=== PATIENT | female | born 1995 | race Caucasian/White ===

== ENCOUNTER 2018-07-27 00:30 | Emergency (ER) | payer BC, MEDICAID, SELFPAY ==
[2018-07-27 00:35] VITALS: BP 112/73; PULSE 78; RESP 16; TEMP 36.7; O2SAT 99
--- NOTE | 2018-07-27 00:41 | ED.GENADUL_ITS ---
Discharge Plan Disposition Patient Disposition: HOME Condition: Improving Discharge Details Chief Complaint: Abd Prob Clinical Impression: Abdominal pain Primary Care Provider: Nemesio Valdez ED Provider: Alice Napier Home Meds and New Rx's Prescriptions: No Action levonorgestrel [Mirena] 1 EACH intrauterine device 1 ea Intrauterine ONCE Qty: 1 RF: 0 clobetasol-emollient 15 GM cream 15 gm Topical BID 14 Days Qty: 14 RF: 0 Discharge Instructions Instructions: Abdominal Pain (ED) Additional Instructions: You were found to have free fluid in your pelvis on the CAT scan of your abdomen. This could be consistent possibly with a ruptured ovarian cyst. This can be further evaluated with a pelvic ultrasound. As you do not want transfer to [facility] at this time for this test, please return early tomorrow morning for reevaluation and possibly ultrasound if your pain persists. We do not have ultrasound readily available on the weekends but attempts can be made to contact them for availability. Return immediately to the emergency department if you have any worsening or new concerning symptoms. Alternate Tylenol and Motrin as needed and directed for pain. If your pain improves and you feel better, follow-up with your primary care doctor in 1 week for reevaluation as needed. Discharge Data Discharge Physician: Alice Napier Medical Decision Making [facility] Narrative Medical decision making narrative: 23-year-old female who presents with intermittent dull right lower quadrant pain for 2 days, worse tonight now constant and sharp and associated with nausea. Patient tearful during exam. Vitals within normal limits. She has right lower quadrant tenderness to palpation but no rebound, rigidity, guarding. She appears nontoxic. Differential diagnosis includes appendicitis, ovarian cyst. She does admit to her normal physiologic discharge but states is no different than usual. She has no fever, abnormal vaginal discharge, this makes tubo-ovarian abscess unlikely. We will place an IV, bolus IV fluids, labs, urinalysis, urine test, CT abdomen and pelvis to rule out acute process such as appendicitis or ovarian cyst. We do not have ultrasound available at this time. She is declining pelvic exam at this time. 0200 --patient feels better. She states her pain is improved to 3/10. Labs reviewed and negative. White blood cell count normal. CT pending. 0230 --CT notes small amount of fluid in the pelvis. The appendix is vaguely seen but grossly unremarkable. Results were discussed with patient and she states she feels better and is requesting to go home. I discussed with patient that although the appendix is vaguely seen, she has normal white blood cell count, no fever, making appendicitis less likely however if anything changes she should return immediately to the emergency department. We also discussed the possibility of fluid in the pelvis may be indicating a ruptured ovarian cyst. Also discussed the possibility of ovarian torsion and that this would require emergent transfer to [facility] for an ultrasound which patient is declining at this time. Patient states she feels better and would rather go home. I discussed with patient that ultrasound is not available on the weekends , but if her pain is still present tomorrow morning, she should return to the emergency department as they can attempt to contact ultrasound for availability or consider transfer if necessary at that time. Patient otherwise instructed to follow-up with her primary care doctor. HPI - General Adult General Mode of arrival: ambulatory . Date/Time Provider Initiated Documentation: 07/27/18 00:36 . Limitations to Documentation: no limitations . Information obtained by: patient . HPI Narrative: Patient is a 23-year-old female who presents with intermittent dull right lower quadrant pain for 2 days, now more constant and sharp for the past 2 hours states the pain is currently 7/10 but 10/10 with palpation. States the pain radiates around to her back. She also admits to nausea for the past 2 hours but denies any vomiting, diarrhea, urinary symptoms. She does admit to her normal physiologic discharge but denies any change in this. She is sexually active with her but denies any known exposure to STDs or external lesions. States her last bowel movement was at 6 PM tonight and was normal without diarrhea or blood. She denies any vaginal bleeding. She is on Mirena and denies any chance of . She is unsure of her last menstrual period. Patient states she was on an antibiotic for urinary tract infection per her PCP office which she finished 1 week ago for urinary symptoms of dysuria and frequency but she states these have now resolved. Past medical history: Negative Surgical history: Bilateral myringotomy tubes OB history: , normal spontaneous vaginal delivery, last occurring in February 2017 Social history: Denies tobacco, alcohol or drug use Medications: Mirena Allergies: Penicillin Primary CARE DrEliu: [facility] Related Data Allergies Allergy/AdvReac Type Severity Reaction Status Date / Time Penicillins Allergy Mild Hives Unverified 07/27/18 00:37 animal dander Allergy Mild Itching Uncoded 07/27/18 00:37 General Stated Complaint: Abd Prob DURGA: 3 Review of Systems Review of Systems All systems reviewed & are unremarkable except as noted in HPI and below Constitutional Denies chills, Denies excessive sweating, Denies fatigue, Denies fever(s), Denies weakness and Denies weight loss Eyes Patient Reports system reviewed and no additional complaints, except as docu and Denies blurry vision ENT Denies vertigo, Denies dizziness, Denies otalgia, Denies nasal congestion, Denies sore throat and Denies throat swelling Cardiovascular Denies chest pain, Denies syncope, Denies rapid heart rate and Denies dyspnea Respiratory Denies dyspnea Gastrointestinal Reports abdominal pain, Denies change in bowel habits, Denies constipation, Denies diarrhea, Reports nausea and Denies vomiting Genitourinary Denies hematuria, Denies dysuria and Denies flank pain Musculoskeletal Denies joint swelling Integumentary/Breasts Denies lesions and Denies rash Neurologic Denies behavioral changes, Denies confusion, Denies vertigo, Denies dizziness, Denies syncope and Denies weakness Psychiatric Denies behavioral changes, Denies confusion and Denies depression Endocrine Denies excessive sweating and Denies fatigue Hematologic/Lymphatic Denies easy bruising and Denies lymphadenopathy Allergic/Immunologic Denies throat swelling PFSH Social History Smoking/Tobacco Use Status: Never Exam Const General: cooperative, healthy appearing and in distress moderate (Crying during exam with palpation) Orientation: alert and awake [facility] Head: normal to inspection Ears: hearing grossly normal bilaterally, external ears normal and TM's normal bilaterally General nose exam: external nose normal Face and sinus: normal facial exam Mouth: oral mucosae normal Eyes General: appearance normal, both eyes and all related structures Eyelids: eyelids normal EOM: EOM intact bilaterally Neck Neck: normal visual inspection Lymphatic: no lymphadenopathy noted Chest Chest: normal inspection of the chest Resp Effort & Inspection: normal respiratory effort and able to speak in complete sentences Auscultation: clear to auscultation bilaterally Cardio Rate: regular rate Rhythm: regular rhythm GI Inspection: normal to inspection Palpation: soft, not firm, no guarding, no hepatosplenomegaly, no masses, not rigid and tender (Moderate tenderness to palpation in right lower quadrant. No rebound tenderness. Negative heel jar sign. Negative psoas sign) Auscultation: hypoactive bowel sounds Back/Spine/Pelvis Back: no CVA tenderness Skin General skin exam: no rashes or lesions noted Neuro General: alert and awake Cognition: normal cognition Speech: speech normal Gait: normal gait Motor: muscle tone normal throughout Sensory Exam: no sensory deficits noted Extrem General: normal to inspection, full ROM and normal capillary refill Psych Appearance: grossly normal Mental Status: mental status grossly normal Speech and Movement: speech and movement normal Affect: normal affect Thought Process: normal Course Vital Signs Temperature 98.1 F 07/27/18 00:35 Pulse 78 07/27/18 00:35 Respiratory Rate 16 07/27/18 00:35 Blood Pressure 112/73 07/27/18 00:35 Pulse Oximetry 99 07/27/18 00:35 Temperature 98.1 F 07/27/18 00:35 Pulse 78 07/27/18 00:35 Respiratory Rate 16 07/27/18 00:35 Blood Pressure 112/73 07/27/18 00:35 Pulse Oximetry 99 07/27/18 00:35
[2018-07-27 00:51] LABS: Bilirubin Negative (Negative); Blood Negative (Negative); Clarity Clear; Glucose Negative (Negative); Ketones Negative (Negative); Leukocyte Esterase Trace (Negative); Nitrite Negative (Negative); Urobilinogen 0.2 EU/dL (Up TO 0.2); pH 6.5 (5-8)
[2018-07-27 01:01] LABS: Bacteria Moderate HPF (Negative); C & S Indicated? No/Sq. Contamination; Casts Negative LPF (Negative); Crystals Negative HPF (Negative); Epithelial Cells Many HPF (Negative); Mucus Negative (Negative); RBC 0-2 (0-2); WBC 20-50 HPF (0-5)
[2018-07-27] MEDS: Normal Saline 1,000 ML 1000 ML IV (01:05)
[2018-07-27] MEDS: Ondansetron 4 MG/2 ML VIAL IVP (01:06)
[2018-07-27] MEDS: Ketorolac 30 MG/ML VIAL IVP (01:06)
[2018-07-27 01:16] LABS: Abs Immature Grans 0.01 k/cumm (0.0-0.09); Absolute Basophil Count 0.04 k/cumm (0.0-0.2); Absolute Eosinophil Count 0.22 k/cumm (0.0-0.7); Absolute Monocyte Count 0.69 k/cumm (0.11-0.7); Absolute Neutrophil Count 4.11 k/cumm (1.2-6.7); Basophils % 0.5; Eosinophils % 2.7; HCT 39.6 % (36.0-46.0); HGB 13.4 g/dL (12.0-15.5); Immature Grans % 0.1; Lymphocytes % 37.2; Mean Corp. HGB Concentration 33.8 g/dL (32.0-36.0); Mean Corpuscular Hemoglobin 29.6 pg (27.0-33.0); Mean Corpuscular Volume 87.6 fL (80-95); Mean Platelet Volume 11.1 fL (8.0-11.0); Monocytes % 8.6; Neutrophils % 50.9; Platelet Count 198 x1000/uL (130-400); RBC 4.52 m/cumm (4.00-5.20); RBC Distribution Width 13.2 % (11.7-14.6); White Blood Cell Count 8.07 k/cumm (4.4-10.8)
--- NOTE | 2018-07-27 01:40 | DI.CT_ITS ---
SYMPTOM/DIAGNOSIS: RLQ ABD PAIN, R/O ACUTE APPENDICITIS CT ABDOMEN AND PELVIS: Images were performed from the lung bases through the ischial tuberosities after IV contrast. The lung bases are clear. The liver, gallbladder, spleen, pancreas, adrenals and kidneys are unremarkable. No bowel dilatation or inflammatory changes are seen. The appendix is not well seen, the appendix appears normal. There is a moderate quantity of fluid in the lower pelvis An IUD was seen within the uterus which appears somewhat enlarged. The ovaries are unremarkable. The bladder appears intact. No bony abnormalities are seen. No adenopathy is seen. IMPRESSION: No evidence of appendicitis or ovarian cysts. There is fluid in the lower pelvis.
[2018-07-27 01:43] LABS: ALT 18 U/L (12-78); AST 17 U/L (15-37); Albumin 3.9 g/dL (3.4-5.0); Alkaline Phosphatase 117 U/L (46-116); Anion Gap 4.7 mmol/L (3-11); BUN 17 mg/dL (7-18); Bilirubin, Total 0.3 mg/dL (0.2-1.0); CO2 29.3 mmol/L (21.0-32.0); CREATININE 0.75 mg/dL (0.55-1.02); Calcium 8.3 mg/dL (8.5-10.1); Chloride 103 mmol/L (98-107); Glucose 90 mg/dL (70-100); Potassium 3.5 mmol/L (3.5-5.1); Sodium 137 mmol/L (136-145); Total Protein 7.8 g/dL (6.4-8.2)
[2018-07-27] MEDS: Omnipaque 350 MG/ML 100 ML BTL IJ (01:46)
--- NOTE | 2018-07-27 02:20 | DI.VRAD_ITS ---
EXAM: CT Abdomen and Pelvis With Intravenous Contrast CLINICAL HISTORY: 23 years old, female; Pain; Abdominal pain; Localized; Right lower quadrant (rlq); Patient HX: Rlq pain TECHNIQUE: Axial computed tomography images of the abdomen and pelvis with intravenous contrast. All CT scans at this facility use at least one of these dose optimization techniques: automated exposure control; mA and/or kV adjustment per patient size (includes targeted exams where dose is matched to clinical indication); or iterative reconstruction. Coronal and sagittal reformatted images were created and reviewed. CONTRAST: 86 mL of Omnipaque 350 administered intravenously. COMPARISON: US - PELVIS TRANSVAG 03/06/2016 5:33 PM FINDINGS: Lung bases: Unremarkable. No mass. No consolidation. ABDOMEN: Liver: Unremarkable. No mass. Gallbladder and bile ducts: Unremarkable. No calcified stones. No ductal dilation. Pancreas: Unremarkable. No mass. No ductal dilation. Spleen: Unremarkable. No splenomegaly. Adrenals: Unremarkable. No mass. Kidneys and ureters: Unremarkable. No solid mass. No hydronephrosis. Stomach and bowel: Unremarkable. No obstruction. No mucosal thickening. PELVIS: Appendix: The appendix is vaguely seen and grossly unremarkable. Overall evaluation is limited without oral contrast. Bladder: Unremarkable. No mass. Reproductive: IUD in place. ABDOMEN and PELVIS: Intraperitoneal space: Small amount of fluid in the pelvis. No free air. Bones/joints: No acute fracture. No dislocation. Soft tissues: Unremarkable. Vasculature: Unremarkable. No abdominal aortic aneurysm. Lymph nodes: Unremarkable. No enlarged lymph nodes. IMPRESSION: IUD in place. Small amount of fluid in the pelvis. If further evaluation is desired, consider correlation with pelvic ultrasound. The appendix is vaguely seen and grossly unremarkable. Dictated and Authenticated by: Dexter Reilly MD. Ordering:KOBY TRAN MD
[2018-07-27 02:56] VITALS: BP 97/52; PULSE 73; RESP 16; TEMP 36.7; O2SAT 98
== END 2018-07-27 03:03 | disposition home or self-care (01) ==
PROVIDERS: Emergency Provider Physician Assistant; PCP Internal Medicine
DX: R10.31 Right lower quadrant pain (principal); R11.0 Nausea
CPT/HCPCS: 36415; 80053; 81025; 96361; 96374; 96375; 99285; 74177; 81003; 81015; 85025; J1885; J2405; J3490

== ENCOUNTER 2018-10-04 14:24 | Emergency (ER) | payer BC, MEDICAID, SELFPAY ==
[2018-10-04 14:35] VITALS: BP 105/56; PULSE 105; RESP 16; TEMP 37; O2SAT 99
[2018-10-04 14:36] VITALS: BP 105/65; PULSE 105; RESP 14; TEMP 37; O2SAT 99
[2018-10-04 14:44] VITALS: TEMP 37.4
--- NOTE | 2018-10-04 14:51 | DI.RAD_ITS ---
SYMPTOMS/DIAGNOSIS: COUGH PA AND LATERAL CHEST: The heart size and pulmonary vasculature are within normal limits. There is a small infiltrate in the left lingula. The lungs are otherwise clear. No effusions or pneumothoraces are identified. The bones appear intact. IMPRESSION: Left lingular pneumonia.
[2018-10-04] MEDS: Ibuprofen 600 MG TAB PO (14:55)
[2018-10-04] MEDS: Acetaminophen 500 MG TAB 1000 MG PO (14:55)
--- NOTE | 2018-10-04 15:12 | ED.GENADUL_ITS ---
Discharge Plan Disposition Patient Disposition: HOME Condition: Fair Discharge Details Chief Complaint: RespSymp Clinical Impression: Pneumonia Primary Care Provider: Nemesio Valdez ED Provider: Vaishali Mcdonald Home Meds and New Rx's Prescriptions: New azithromycin 250 mg tablet 250 mg PO DAILY 4 Days Qty: 4 RF: 0 benzonatate [Tessalon Perles] 100 mg capsule 100 mg PO TID PRN (Reason: cough) Qty: 10 RF: 0 Continue levonorgestrel [Mirena] 1 EACH intrauterine device 1 ea Intrauterine ONCE Qty: 1 RF: 0 clobetasol-emollient 15 GM cream 15 gm Topical BID 14 Days Qty: 14 RF: 0 Discharge Instructions Instructions: Pneumonia (ED) Additional Instructions: Encourage hydration. Tylenol and/or ibuprofen as needed for discomfort. Please take azithromycin as prescribed, even if symptoms improve the entire course. Tessalon Perles prescribed to help with cough. If you develop difficulty breathing, shortness of breath, inability to stay hydrated or other new/worsening symptoms please seek care urgently once again. Please follow-up with primary care in 1 week for reevaluation Referrals: Nemesio Valdez MD [Primary Care Provider] - Medical Decision Making Patient is 23-year-old female presents today with chief complaint of cough times 2 weeks. She will also endorses sore throat and nasal congestion. Reports she is been around multiple ill people recently. Patient works in a school. States that a few days ago her coughing increased and she did experience some gagging and dry heaving associated with the cough. Denies any GI upset separate from the cough. States she was afebrile until today and noted temperature near 102 while at school. Did take Tylenol this morning. Is tried multiple [id number] cold remedies without success from symptomatic management. Is able to hydrate well. On exam, crackles are noted in the left lower lobe, and concern for pneumonia. Will obtain chest x-ray. Patient is endorsing a mild headache which she reports is waxed and waned since the onset of her symptoms. States the pain is mild at this time. No sudden onset of headache. Oxygen is 99% on room air. Patient is tachycardic at 105. Chest x-ray reviewed by myself and I am concerned for consolidation in the area where the crackles on exam. Patient diagnosed with pneumonia. She reports that headache is improving after oral Tylenol and ibuprofen. Heart rate is now in the 80s. Patient appears more comfortable. We will begin her on azithromycin, she will be given the first dose while here. Also prescribe Tessalon Perles to help with symptomatic management. I encouraged hydration. Advised Tylenol and/or ibuprofen as needed for discomfort. Advise follow-up with primary care in 1 week for reevaluation. She is given strict return precautions. Encouraged hand hygiene. All of her questions and concerns were addressed and she is in agreement with this plan. HPI General Mode of arrival: ambulatory . Date/Time Provider Initiated Documentation: 10/04/18 14:41 . Limitations to Documentation: no limitations . Information obtained by: patient . History of Present Illness 23 year old F presents to the emergency department with the chief complaint of cough, described as moderate, Quality is described as aching, and is localized to the back (reports that with cough she has some discomfort in posterior chest wall). Patient reports no radiation. Patient started experiencing this week(s) (2) and it has been constant. No relieving factors improve symptom(s), No exacerbating factors reported . Patient notes cough, fever/chills, headaches, nausea/vomiting (states that she can gag associated with cough, denies nausea without cough) and shortness of breath; denies chest pain, diaphoresis and rash. Patient did receive the following treatments prior to arrival, other (multiple OTC cold medications) Related Data Home Medications Medication Instructions Recorded Confirmed levonorgestrel [Mirena] 1 ea INTRAUTERINE ONCE #1 insert 05/15/17 10/04/18 clobetasol-emollient 15 gm TOPICAL BID 14 Days #14 tube 05/08/18 10/04/18 azithromycin 250 mg PO DAILY 4 Days #4 tab 10/04/18 benzonatate [Tessalon Perles] 100 mg PO TID PRN #10 cap 10/04/18 Previous Rx's Medication Instructions Recorded clobetasol-emollient 15 gm TOPICAL BID 14 Days #14 tube 05/08/18 azithromycin 250 mg PO DAILY 4 Days #4 tab 10/04/18 benzonatate [Tessalon Perles] 100 mg PO TID PRN #10 cap 10/04/18 Allergies Allergy/AdvReac Type Severity Reaction Status Date / Time Penicillins Allergy Mild Hives Verified 10/04/18 14:39 animal dander Allergy Mild Itching Uncoded 10/04/18 14:39 General Stated Complaint: RespSymp DURGA: 3 Review of Systems Constitutional Reports as per HPI, Denies body ache(s), Reports chills, Reports fatigue, Reports fever(s) and Reports headache(s) ENT Reports as per HPI, Denies dizziness, Denies ear discharge, Denies otalgia, Reports headache(s), Reports nasal congestion, Reports nasal discharge, Denies sinus pain, Denies sinus pressure and Reports sore throat Cardiovascular Reports as per HPI Respiratory Reports as per HPI, Reports chest congestion and Reports cough Gastrointestinal Reports as per HPI, Denies abdominal pain and Denies change in stool character Genitourinary Denies system reviewed and no additional complaints, except as docu (denies change in urinary habits) Musculoskeletal Reports as per HPI Integumentary/Breasts Reports as per HPI and Denies rash Neurologic Denies dizziness and Reports headache(s) Endocrine Reports fatigue Exam Const General: cooperative, comfortable, no acute distress, well developed, well groomed and ill appearing (appears fatigued, breathing comfortably, coughing) acutely Nutritional Appearance: average body habitus and well nourished Orientation: alert and awake [facility] Head: normal to inspection, normocephalic and atraumatic Ears: hearing grossly normal bilaterally, external ears normal and TM's normal bilaterally General nose exam: external nose normal and nares normal Face and sinus: normal facial exam and sinuses nontender Mouth: oral mucosae normal, lip normal, tongue normal, oropharynx normal, moist mucous membranes, no muffled voice and no trismus Teeth and gingiva: dentition normal Throat: posterior oropharynx normal, tonsils normal and uvula midline Eyes General: appearance normal, both eyes and all related structures Neck Neck: normal visual inspection, full ROM, no lymphadenopathy and no meningeal signs Resp Effort & Inspection: normal respiratory effort, able to speak in complete sentences and no respiratory distress Auscultation: crackles on the left (otherwise clear, moving air well) in the lower lung macias Cardio Rate: regular rate Rhythm: regular rhythm Heart Sounds: S1 normal and S2 normal GI Inspection: normal to inspection Palpation: soft, no hepatosplenomegaly, not rigid and nontender Skin General skin exam: no rashes or lesions noted Trauma: no lacerations or abrasions Neuro General: alert and awake Cognition: normal cognition Speech: speech normal Gait: normal gait Psych Appearance: grossly normal and well kempt Mental Status: mental status grossly normal Speech and Movement: speech and movement normal Course Vital Signs Temperature 37 C 10/04/18 14:35 Pulse 105 H 10/04/18 14:35 Respiratory Rate 16 10/04/18 14:35 Blood Pressure 105/56 L 10/04/18 14:35 Pulse Oximetry 99 10/04/18 14:35 Temperature 37 C 10/04/18 14:36 Temperature Source Temporal Artery Scan 10/04/18 14:36 Pulse 105 H 10/04/18 14:36 Respiratory Rate 14 10/04/18 14:36 Blood Pressure 105/65 10/04/18 14:36 Blood Pressure Position Sitting 10/04/18 14:36 Pulse Oximetry 99 10/04/18 14:36 Oxygen Delivery Method Room Air 10/04/18 14:36 Oxygen Flow Rate 0 10/04/18 14:36 Pain Level 7 10/04/18 14:36 Comment 10/04/18 14:36
[2018-10-04] MEDS: Azithromycin 250 MG TAB 500 MG PO (15:45)
[2018-10-04 15:46] VITALS: BP 102/69; PULSE 86; RESP 16; O2SAT 100
[2018-10-04 15:52] VITALS: BP 103/75; PULSE 83; RESP 20; TEMP 37.3; O2SAT 98
== END 2018-10-04 15:56 | disposition home or self-care (01) ==
PROVIDERS: Emergency Provider Physician Assistant; PCP Internal Medicine
DX: J18.9 Pneumonia, unspecified organism (principal); R51 Headache
CPT/HCPCS: 87449; 99283; 71046

== ENCOUNTER 2018-11-07 09:21 | Outpatient (CLI) | payer BC, SELFPAY ==
[2018-11-08 00:07] LABS: Vitamin D 25 Total 22.1 ng/ml (30-100)
[2018-11-08 09:53] LABS: Cyclic Citrullinated Peptide <2.5 U/mL (<5.0); Rheumatoid Factor <8 IU/mL (<12.5)
[2018-11-08 13:58] LABS: ANA Interpretation Positive (NEGAT); ANA Titer Pattern 1:160 Speckled
[2018-11-14 14:16] LABS: HLA-B27 Result Positive
== END 2018-11-07 09:41 ==
PROVIDERS: PCP Internal Medicine; Visit Provider Dentist Oral and Maxillofacial Surgery
DX: M26.633 Articular disc disorder of bilateral temporomandibular joint (principal)
CPT/HCPCS: 36415; 82306; 86200; 86812; 86038; 86431

== ENCOUNTER 2019-04-01 17:37 | Outpatient (REF) | payer BC, SELFPAY ==
[2019-04-03 13:40] LABS: Chlamydia Result Negative; GC Result Negative
== END 2019-04-01 17:57 ==
LOC: LBN 17:37
PROVIDERS: PCP Internal Medicine; Visit Provider Nurse Practitioner Family
DX: Z11.3 Encounter for screening for infections with a predominantly sexual mode of transmission (principal)
CPT/HCPCS: 87491; 87591

== ENCOUNTER 2019-04-29 07:47 | Emergency (ER) | payer BC, SELFPAY ==
[2019-04-29 07:58] VITALS: BP 103/68; PULSE 77; RESP 16; TEMP 36.6; O2SAT 95
--- NOTE | 2019-04-29 08:09 | NUR.NOTE ---
iv placed labs drawn pt pending practioner eval Nursing Note:
[2019-04-29] MEDS: Ondansetron 4 MG/2 ML VIAL IVP (08:24)
[2019-04-29] MEDS: Normal Saline 1,000 ML 1000 ML IV (08:24)
[2019-04-29] MEDS: Normal Saline Flush 10 ML SYR IVP (08:24)
--- NOTE | 2019-04-29 08:24 | ED.GENADUL_ITS ---
Discharge Plan Disposition Patient Disposition: HOME Condition: Fair Discharge Details Chief Complaint: Nausea/Vomit/Diar Clinical Impression: Gastroenteritis Primary Care Provider: Nemesio Valdez ED Provider: Vaishali Mcdonald Home Meds and New Rx's Prescriptions: New ondansetron 4 mg tablet,disintegrating 4 mg PO QID PRN (Reason: nausea and vomiting) Qty: 10 RF: 0 Continued Mirena 1 EACH intrauterine device 1 ea Intrauterine ONCE Qty: 1 RF: 0 Discharge Instructions Instructions: Gastroenteritis (ED) Additional Instructions: Encourage hydration. You may use Zofran to help with nausea or vomiting as prescribed. Please follow-up with primary care next week if not improving. If you are unable to stay hydrated, develop abdominal pain , fevers/chills or other new/worsening symptoms please seek care urgently once again Stand Alone Forms: Work Release Referrals: Nemesio Valdez MD [Primary Care Provider] - Discharge Data Discharge Date/Time-TO BE ENTERED AT DEPARTURE: 04/29/19 09:37 Medical Decision Making Patient 23-year-old female presents today with chief complaint of nausea, vomiting or diarrhea. She reports symptoms began approximately 2 days ago. States that her daughters are sick with similar illness but that there seemed to subside with her bowels. She denies any recent travel. No recent antibiotics. She denies any abdominal pain. No fevers or chills. States that she last was able to keep food down last night, states that she did eat green beans. Has been trying to hydrate today. No vomiting today but does endorse nausea. Reports that she has had liquidy bowel movements over the past 2 days and has been going directly over 3 hours. On exam, abdomen is benign. She appears nontoxic. Vital signs within normal limits. Patient does look fatigued. Plan to hydrate assess for any electrolyte abnormalities. Patient is currently endorsing nausea will give Zofran. Patient is feeling improved after hydration and Zofran. She was given strict return precautions. No electrolyte abnormalities, no leukocytosis. UPT negative. Patient has elevated anion gap, this is abnormality noted in isolation. Likely associated with her illness. As she is nontoxic with normal VS, labs otherwise unremarkable, will have her f/u on this with PCP. Discussed these findings with patient. Encouraged hydration. Will prescribe Zofran to help with symptom medic management. Work note will be given. Advise follow-up with primary care next week. She is given strict return precautions. All of her questions and concerns were addressed and she is in agreement this plan HPI General Mode of arrival: ambulatory . Date/Time Provider Initiated Documentation: 04/29/19 07:48 . Limitations to Documentation: no limitations . Information obtained by: patient and RN notes reviewed . History of Present Illness 23 year old F presents to the emergency department with the chief complaint of N/V/D, described as moderate, Quality is described as other (denies any abdominal pain), Patient started experiencing this day(s) (2) and it has been constant. No relieving factors improve symptom(s), No exacerbating factors reported . Patient notes headaches (reports she frequently gets SALDAÑA, took ibuprofen with good relief this morning), loss of appetite and nausea/vomiting; denies chest pain, cough, fever/chills, rash, shortness of breath and weakness. Patient did receive the following treatments prior to arrival, NSAID Related Data Home Medications Medication Instructions Recorded Confirmed Mirena 1 ea INTRAUTERINE ONCE #1 insert 05/15/17 04/29/19 ondansetron 4 mg PO QID PRN #10 tab 04/29/19 Previous Rx's Medication Instructions Recorded ondansetron 4 mg PO QID PRN #10 tab 04/29/19 Allergies Allergy/AdvReac Type Severity Reaction Status Date / Time Penicillins Allergy Mild Hives Verified 04/29/19 08:01 animal dander Allergy Mild Itching Uncoded 04/29/19 08:01 General DURGA: 3 Review of Systems Constitutional Reports as per HPI, Denies chills, Denies fatigue, Denies fever(s) and Reports headache(s) ENT Reports headache(s) Cardiovascular Reports as per HPI, Denies chest pain and Denies dyspnea Respiratory Reports as per HPI, Denies cough and Denies dyspnea Gastrointestinal Reports as per HPI, Denies abdominal pain, Denies melena, Reports change in bowel habits, Denies fecal incontinence, Reports diarrhea, Reports nausea, Reports vomiting and Denies hematemesis Genitourinary Denies urinary frequency, Denies dysuria, Denies flank pain, Denies urinary incontinence, Denies urinary urgency and Denies vaginal discharge Musculoskeletal Reports as per HPI and Denies back pain Integumentary/Breasts Reports as per HPI and Denies rash Neurologic Reports as per HPI and Reports headache(s) Endocrine Denies fatigue PFSH Social History Smoking/Tobacco Use Status: Never Alcohol Intake: never Drug use: Never Adopted: No Caregiver/Support person: No Foster care: No Household members: family and children Number of Children: 2 current occupation: teacher assitant Sexually active: Yes What is your relationship status?: Panel score (0-1 are the most socially isolated patients): 1 Seatbelt use: always Do you feel safe at home: Yes Do you feel safe in your relationship?: Yes History History 2 Para Hx # Term Pregnancies Multiple births Hx # Pregnancies Ectopic pregnancies AB induced Hx Number of Living Children AB spontaneous Exam Const General: cooperative, healthy appearing, comfortable, no acute distress and well developed Nutritional Appearance: average body habitus and well nourished Orientation: alert and awake HENMT Head: normal to inspection Mouth: moist mucous membranes Resp Effort & Inspection: normal respiratory effort, able to speak in complete sentences and no respiratory distress Auscultation: clear to auscultation bilaterally, no rales, no rhonchi and no wheezes Cardio Rate: regular rate Rhythm: regular rhythm Heart Sounds: S1 normal and S2 normal GI Inspection: normal to inspection, no edema and non-distended Palpation: soft, no hepatosplenomegaly, not firm, no guarding, not rigid and nontender Percussion: normal to percussion Auscultation: normal bowel sounds Back/Spine/Pelvis Back: no CVA tenderness Skin General skin exam: no rashes or lesions noted Trauma: no lacerations or abrasions Neuro General: alert and awake Cognition: normal cognition Speech: speech normal Gait: normal gait Extrem General: no pedal edema and no calf tenderness Psych Appearance: grossly normal and well kempt Mental Status: mental status grossly normal Speech and Movement: speech and movement normal
--- NOTE | 2019-04-29 08:25 | NUR.NOTE ---
pt medicated as per mdo Nursing Note:
[2019-04-29 08:33] LABS: Abs Immature Grans 0.01 k/cumm (0.0-0.09); Absolute Basophil Count 0.01 k/cumm (0.0-0.2); Absolute Eosinophil Count 0.04 k/cumm (0.0-0.7); Absolute Monocyte Count 0.73 k/cumm (0.11-0.7); Absolute Neutrophil Count 4.22 k/cumm (1.2-6.7); Basophils % 0.2; Eosinophils % 0.6; HCT 43.3 % (36.0-46.0); HGB 14.7 g/dL (12.0-15.5); Immature Grans % 0.2; Lymphocytes % 19.3; Mean Corp. HGB Concentration 33.9 g/dL (32.0-36.0); Mean Corpuscular Hemoglobin 30.2 pg (27.0-33.0); Mean Corpuscular Volume 88.9 fL (80-95); Mean Platelet Volume 11.1 fL (8.0-11.0); Monocytes % 11.8; Neutrophils % 67.9; Platelet Count 143 x1000/uL (130-400); RBC 4.87 m/cumm (4.00-5.20); RBC Distribution Width 13.5 % (11.7-14.6); White Blood Cell Count 6.21 k/cumm (4.4-10.8)
[2019-04-29 08:56] LABS: ALT 20 U/L (12-78); AST 22 U/L (15-37); Albumin 3.8 g/dL (3.4-5.0); Alkaline Phosphatase 85 U/L (46-116); Anion Gap 14.6 mmol/L (3-11); BUN 16 mg/dL (7-18); Bilirubin, Total 0.6 mg/dL (0.2-1.0); CO2 21.4 mmol/L (21.0-32.0); CREATININE 0.81 mg/dL (0.55-1.02); Calcium 8.9 mg/dL (8.5-10.1); Chloride 102 mmol/L (98-107); Glucose 85 mg/dL (70-100); Magnesium 1.9 mg/dL (1.8-2.4); Potassium 3.6 mmol/L (3.5-5.1); Sodium 138 mmol/L (136-145); Total Protein 7.8 g/dL (6.4-8.2)
[2019-04-29 09:32] VITALS: BP 97/61; PULSE 72; RESP 14; TEMP 36.9; O2SAT 97
== END 2019-04-29 09:37 | disposition home or self-care (01) ==
PROVIDERS: Emergency Provider Physician Assistant; PCP Internal Medicine
DX: K52.9 Noninfective gastroenteritis and colitis, unspecified (principal)
CPT/HCPCS: 36415; 80053; 81025; 96361; 96374; 99284; 83735; 85025; J2405; J3490

== ENCOUNTER 2019-08-13 09:05 | Outpatient (CLI) | payer BC, SELFPAY | END 2019-08-13 09:25 | PROVIDERS: PCP Internal Medicine; Visit Provider Nurse Practitioner Gerontology | DX: N39.0 Urinary tract infection, site not specified (principal) | CPT/HCPCS: 87077; 87086; 87186 ==

== ENCOUNTER 2020-07-07 02:15 | Outpatient (CLI) | payer MEDICAID, SELFPAY ==
[2020-07-07 14:46] LABS: Kit/Specimen SENT
[2020-07-07 14:55] LABS: Abs Immature Grans 0.04 10^3/uL (0.0-0.06); Absolute Basophil Count 0.02 10^3/uL (0.0-0.2); Absolute Eosinophil Count 0.14 10^3/uL (0.0-0.7); Absolute Lymphocyte Count 2.17 10^3/uL (1.2-3.4); Absolute Monocyte Count 0.54 10^3/uL (0.1-0.8); Basophils % 0.2; Eosinophils % 1.3; HCT 40.6 % (36.0-46.0); HGB 13.3 g/dL (11.2-15.7); Immature Grans % 0.4; Lymphocytes % 19.5; MCH 29.8 pg (27.0-33.0); MCHC 32.8 % (32.0-36.0); MPV 10.7 fL (8.0-11.0); Monocytes % 4.8; Neutrophils % 73.8; Nucleated RBC 0 %; Platelet Count 241 10^3/uL (130-400); RBC 4.46 10^6/uL (3.93-5.22); RDW 12.5 % (11.7-14.6); RDW-SD 41.3 fL; WBC 11.15 10^3/uL (4.4-10.8)
[2020-07-07 15:01] LABS: Absolute Neutrophil Count 8.23 10^3/uL (1.2-6.7)
[2020-07-07 16:12] LABS: TSH (W/Ref FT4) 2.01 uIU/mL (0.36-3.74)
[2020-07-08 08:54] LABS: Hepatitis B Surface Ag Negative (Negative)
[2020-07-08 09:27] LABS: Hepatitis C Ab w Rflx HCV PCR Negative (Negative)
[2020-07-08 09:44] LABS: HIV-1/2 Ag & Ab Screen Negative (Negative)
[2020-07-08 10:18] LABS: Varicella IgG Antibody Positive (See Note)
[2020-07-08 10:21] LABS: Rubella IgG Ab (UVM) Positive (See Note)
[2020-07-09 10:26] LABS: Syphilis Total Ab w/Reflex Nonreactive (Nonreactive)
== END 2020-07-07 02:35 ==
PROVIDERS: PCP Internal Medicine; Visit Provider Advanced Practice Midwife
DX: Z34.91 Encounter for supervision of normal pregnancy, unspecified, first trimester (principal); Z3A.10 10 weeks gestation of pregnancy
CPT/HCPCS: 36415; 86787; 86803; 86850; 86900; 86901; 87340; 87389; 84443; 85025; 86762; 86780

== ENCOUNTER 2020-07-07 14:34 | Outpatient (REF) | payer MEDICAID, SELFPAY ==
--- NOTE | 2020-07-07 14:00 | PAPFT_PTH ---
PATIENT: CORINE MARTIN LOC: [facility] U#:[id number] AGE/SX: 25/F ROOM: RE07/07/[address]: Dipti Lamar CNM : 1995 BED: DIS: 07/07/2020 SPEC #: [id number] RECD: 07/07/20 17:15 STATUS: [place] REQ #: [id number] ARI: 07/07/20 14:[address]: Dipti Lamar DEPT: [facility] Cytology RECD BY: Laureen Rivas ENTERED: 07/07/20 17:16 SP TYPE: PAPFT OTHR DR: Nemesio Valdez Tissues: 1 - CX/ENDOCX FOR PAP SMEARS Procedures: PAP THIN PREP/[facility] Screening Comments: [id number]
[2020-07-07 17:31] LABS: *AMPHETAMINES SCREEN URINE Negative (Negative); *BARBITURATES SCREEN URINE Negative (Negative); *BENZODIAZEPINES SCREEN URINE Negative (Negative); Cannabinoids THC Negative (Negative); Cocaine Screen,Urine Negative (Negative); METHADONE URINE SCREEN Negative (Negative); OPIATES URINE SCREEN Negative (Negative)
[2020-07-07 17:32] LABS: Tricyclic Antidepressants Negative (Negative)
[2020-07-09 16:50] LABS: Chlamydia Result Negative (Negative); GC Result Negative (Negative)
[2020-07-15 12:14] LABS: Buprenorphine Negative; Norbuprenorphine Negative
== END 2020-07-07 14:54 ==
LOC: LBN 14:34
PROVIDERS: PCP Internal Medicine; Visit Provider Advanced Practice Midwife
DX: R87.612 Low grade squamous intraepithelial lesion on cytologic smear of cervix (LGSIL) (principal)
CPT/HCPCS: 80307; 87491; 87591; 88142; 87086

== ENCOUNTER 2020-08-30 00:36 | Outpatient (CLI) | payer MEDICAID, SELFPAY ==
--- NOTE | 2020-08-30 07:00 | DI.US_ITS ---
EXAM: US OB 2-3 TRIMESTER CLINICAL HISTORY: 18 wk anatomy survey,Z34.18. TECHNIQUE: Transabdominal obstetrical ultrasound performed. COMPARISON: No previous for comparison. FINDINGS: Transabdominal obstetrical ultrasound performed. FINDINGS: Number of fetuses: One. position: Varied heart rate: 150 bpm. Placental location: Posterior. No evidence of previa. Note is made of a marginal cord insertion on the placenta of 0.8 cm. BIOMETRIC DATA: Composite Age: 18 weeks 4 days EDC: 01/27/2021 Heart Rate: 150BPM Amniotic fluid index: Visually, amount of fluid is within normal limits. ANATOMICAL SURVEY: Within normal limits. BPD: 4.0cm HC: 15.6cm AC: 14.0cm FL: 2.7cm Cisterna Magna: 3.2 mm Cerebellum: 1.8 cm IMPRESSION: 1. Single live intrauterine gestation as above. 2. Normal anatomic survey. 3. Placental cord insertion site is 0.8 cm from the margin. DATA REPOSITORY:
== END 2020-08-30 00:56 ==
PROVIDERS: PCP Internal Medicine; Visit Provider Advanced Practice Midwife
DX: Z34.92 Encounter for supervision of normal pregnancy, unspecified, second trimester (principal); Z3A.18 18 weeks gestation of pregnancy
CPT/HCPCS: 76805